=== PATIENT | male | born 1945 | race Caucasian/White ===

== ENCOUNTER → 2019-10-04 12:35 | Outpatient (BNVA) | payer MEDICARE, MEDICAID, SELFPAY | PROVIDERS: Visit Provider Psychiatry & Neurology Neurology | DX: E11.42 Type 2 diabetes mellitus with diabetic polyneuropathy (principal); M48.061 Spinal stenosis, lumbar region without neurogenic claudication; G31.84 Mild cognitive impairment of uncertain or unknown etiology; Z79.84 Long term (current) use of oral hypoglycemic drugs; I10 Essential (primary) hypertension | CPT/HCPCS: 99205 ==

== ENCOUNTER 2021-09-03 01:33 | Outpatient (CLI) | payer MEDICARE, MEDICAID, SELFPAY ==
--- NOTE | 2021-09-03 11:00 | DI.NM_ITS ---
APPROVED REPORT Exam: Exercise Treadmill Patient Location: In-Patient Room/Bed: Stress Nurse: Debbie Dallas RN Ordering Provider:JASMINE BANERJEE MD Contact Number: [phone] BMI: 30.40 Baseline Rhythm: Sinus Rhythm Comment: RBBB Indications: Other Form Dyspnea Medical History Medical History: chronic fatigue syndrome, depression, HTN, HLD, ETOH, hypothyroidism, mild cognitive impairment, obesity, JANIS, DMII Cardiac Medications: Tadalafil, sitagliptin, losartan-HCTZ, glipizide, levothyroxine, atorvastatin Allergies: NKA Cardiac Risk Factors: HTN, DM, Former Smoker, HLD, Obesity Previous Cardiac Procedures: none Pretest Chest Pain Characteristics: none Exercise History: Indeterminate Physical Disabilities: none Lung Sounds: Clear to auscultation Heart Sounds: Regular Stress Test Details Test: Exercise stress testing was performed using a Yrley protocol. Nuclear Acquisition: Rest Tc-99m/Stress Tc-99m 1 day Rest Isotope: Tc-99m Sestamibi. Dose: 10.6 Date: 09/03/2021 Injection Time: 1120 Stress Isotope: Tc-99m Sestamibi. Dose: 37.2 Date: 09/03/2021 Injection Time: 1324 HR Resting HR Supine: 60 bpm Max Heart Rate (APMHR): 143.652100 bpm Resting HR Standin bpm Target HR (85% APMHR): 121.152717 bpm Max HR Achieved: 174 bpm % of APMHR: 121.68 Recovery HR: 86 bpm HR response to stress: Normal HR response to stress BP Resting BP Supine: 160/80 mmHg Resting BP Standin/72 mmHg Max BP: 230/98 mmHg Recovery BP: 182/80 mmHg BP response to stress: Normal blood pressure response to stress. ECG Resting ECG: Sinus Rhythm, RBBB Ectopy: none Stress ECG: Sinus Rhythm ST Change: nondiagnositc related to RBBB and frequent ectopy Arrhythmia: Non-sustained VT, VPC's Comment: couplets, run of 3, bigem Recovery ECG: Sinus Rhythm, RBBB Recovery ST Change: nondiagnostic related to RBB and frequent ectopy Recovery Arrhythmia: VPC, Non-sustained ventricular tachycardia Comment: couplets, run of , bigem Clinical Reason for Termination: Fatigue Stress Symptoms: none Exercise duration: 5 min54 sec Highest Stage Reached: Stage 2: 2.5 mph at 12% grade. Exercise capacity: 7.05 METs Rate Pressure Product: [id number] Stress ECG Conclusion 1. Resting electrocardiogram showed right bundle branch block, left anterior fascicular block 2. Patient exercised on the Ryley protocol and completed a workload of 7.05 METS, stopping due to fat igue 3. Normal heart rate and blood pressure response to exercise. The patient achieved greater than 100% of predicted heart rate for age 3. Heart peak exercise there were frequent PVCs couplets and nonsustained ventricular tachycardia whi made electrocardiographic interpretation nondiagnostic Stress Test Summary STAGE Time (mins) Speed (mph) Grade (%) HR BP SYMPTOMS METS Supine 60 160/80 Standing 72 162/72 1 3 1.7 10 136 185/80 4.6 1 min recovery 138 230/98 3 min recovery 94 220/84 6 min recovery 94 202/90 9 min recovery 86 182/80 MPI Conclusion Normal myocardial perfusion without evidence of ischemia or prior infarction EF 49% Radiologist Interpretation Radiologist agrees with Logging Operations Inspector's Interpretation. Radiologist Interpretation by: Genesis Casper MD Interpretation Date/Time: 09/04/2021 15:35:05
== END 2021-09-03 01:53 ==
PROVIDERS: PCP Family Medicine; Visit Provider Internal Medicine Interventional Cardiology
DX: R06.09 Other forms of dyspnea (principal); I45.19 Other right bundle-branch block; I10 Essential (primary) hypertension; E11.9 Type 2 diabetes mellitus without complications; Z87.891 Personal history of nicotine dependence; E78.5 Hyperlipidemia, unspecified; E66.9 Obesity, unspecified; I47.2 Ventricular tachycardia; I49.3 Ventricular premature depolarization; I44.4 Left anterior fascicular block; R94.39 Abnormal result of other cardiovascular function study
CPT/HCPCS: 78452; 93016; 93018; 93017